=== PATIENT | female | born 2000 | race African-American/Black ===

== ENCOUNTER 2018-12-04 15:06 | Emergency (ER) | payer MEDICAID ==
[~2018-12-04] VITALS: Ht 160 cm; Wt 66.7 kg
[2018-12-04 15:26] VITALS: BP 113/64
[2018-12-04 18:04] LABS: APPEARANCE,URINE SL CLOUDY (CLEAR); BILIRUBIN,URINE NEGATIVE (NEGATIVE); BLOOD, URINE NEGATIVE (NEGATIVE); COLOR,URINE YELLOW (YELLOW); LEUKOCYTE ESTERASE ,URINE 3+ (NEGATIVE); NITRITE, URINE NEGATIVE (NEGATIVE); UGLUCOSE NEGATIVE (NEGATIVE)
[2018-12-04 18:13] LABS: RBC,URINE NONE SEEN /HPF (0-5)
[2018-12-04 18:48] VITALS: BP 113/64
== END 2018-12-04 18:48 | disposition home or self-care (01) ==
LOC: MED 15:06
DX: O23.41 Unspecified infection of urinary tract in pregnancy, first trimester (principal); Z3A.13 13 weeks gestation of pregnancy
CPT/HCPCS: 81001; 81025; 87086; 99283